=== PATIENT | female | born 1940 | race Caucasian/White ===

== ENCOUNTER 2017-03-06 06:37 | Day surgery (SDC) | payer MEDICARE, OTHER ==
--- NOTE | ~2017-03-06 | OP ---
Record Of Operation [facility] [address] [place]. [address] NAME: GLENN ARGUELLO : 44 STATUS : REG [facility] [place]#: [id number] AGE: 77 ADM/REG DATE : 03/06/17 MR#: [id number] REPORT SERV DATE: 03/06/17 DICTATED BY: RAVI JEAN JR. DATE: 03/06/17 REPORT STATUS : Draft TRANSCRIBED BY: MODCatherine DATE: 03/06/17 DATE OF PROCEDURE: 03/06/2017 PREOPERATIVE DIAGNOSES: Status post previous right lower lobectomy for stage IA squamous cell carcinoma, remote history of hip surgery with postprocedure pneumonia, mediastinal lymphadenopathy, rule out metastatic cancer, coronary artery disease, carotid artery disease, and chronic obstructive pulmonary disease. 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 NAME OF PROCEDURE: Diagnostic and therapeutic bronchoscopy, endobronchial ultrasound with multiple fine-needle aspirations, yani stations 2R, 4R, 7, and 11R. SURGEON: Ravi Jean M.D. RESIDENT SURGEON: Ray Mo MD ANESTHESIA: General. ANESTHESIOLOGIST: Raffaele Odom M.D. FINDINGS: The patient was noted to have a large necrotic lymph node in the subcarinal region. We could not identify any definite tumor cells within this area, although, it was suspicious. Abundant material was sent for cultures and cell block from this region. There was one node in the posterior right hilar region. It was marked on CT scan that was clearly distinctly different from the other lymph nodes in this region. It had suspicion of metastatic squamous cell cancer in it. The remaining lymph nodes in the hilar area were different, it did not have any obvious tumor findings. The right paratracheal node was a cluster of normal nodes in this region. There were lymphocytes present, but no evidence of tumor. The 2R lymph node was not very concerning on ultrasound. It was difficult to get biopsies in this area. We did not see any obvious tumor there. Final pathology, cell block, and cultures are pending. DETAILS OF OPERATION: After adequate general anesthesia, the patient was intubated. There was no endobronchial lesions noted. The right lower lobe bronchial stump was intact. Endobronchial ultrasound demonstrated the most pathologic lymph nodes in the subcarinal region. The second was in the posterior aspect of the right hilum. Remainder of the lymph nodes had a fairly normal architecture. Multiple fine-needle aspiration were performed from this four different regions. Cell block and cultures were also obtained. Final pathology was pending. Adequate hemostasis was obtained. The patient tolerated the procedure well and taken back to recovery room in stable condition. /AR Record Of Operation [facility] [address] [place] [address] NAME: GLENN ARGUELLO : 44 STATUS : REG [facility]#: [id number] AGE: 77 ADM/REG DATE : 03/06/17 MR#: [id number] REPORT SERV DATE: 03/06/17 DICTATED BY: RAVI JEAN JR. DATE: 03/06/17 REPORT STATUS : Draft TRANSCRIBED BY: AR DATE: 03/06/17 Ravi Jean Jr., M.D. / [id number] CC: Chelsi Perez Jr., M.D.
[~2017-03-06 06:37] MED LIST: ACET500CAP PO; ASA5GR PO; ASAB PO; BONIVA150 MG PO; CALTRA600D PO; CYANO1000T PO; FLEX PO; FORTEO SC; IMDUR30 PO; IRON; LIOR10 PO; LIPITOR10 PO; LORT7 PO; MULTI-VIT HP PO; NEUR100 PO; NORCO1 TA1 PO; NORV25 PO; PCET PO; PLAVIX PO; PRILO PO; SUPER B COMPLEX PO; ULTRAM50 PO; VITAMIN D31000 UNIT PO; ZINC220C PO; ZOVI200CAP PO; [UNRECOGNIZED DRUG - OTHER]
[2017-06-05] MEDS ORDERED: COMP10B PO (12:11)
[2017-06-05] MEDS ORDERED: DEX4 PO (12:12)
[2017-06-05] MEDS ORDERED: ZOFRANODT8 PO (12:12)
== END 2017-03-06 23:59 | disposition home or self-care (01) ==
LOC: DMU 06:37
PROVIDERS: Thoracic Surgery (Cardiothoracic Vascular Surgery)
PROC: 07B74ZX Excision of Thorax Lymphatic, Percutaneous Endoscopic Approach, Diagnostic (ICD-10-PCS; principal; 2017-03-06 08:00)
DX: C77.1 Secondary and unspecified malignant neoplasm of intrathoracic lymph nodes (principal); I25.10 Atherosclerotic heart disease of native coronary artery without angina pectoris; I65.23 Occlusion and stenosis of bilateral carotid arteries; I73.9 Peripheral vascular disease, unspecified; Z87.891 Personal history of nicotine dependence; Z82.5 Family history of asthma and other chronic lower respiratory diseases; Z82.49 Family history of ischemic heart disease and other diseases of the circulatory system; Z88.5 Allergy status to narcotic agent; Z85.118 Personal history of other malignant neoplasm of bronchus and lung; Z79.899 Other long term (current) drug therapy; Z79.02 Long term (current) use of antithrombotics/antiplatelets; Z79.82 Long term (current) use of aspirin; Z98.890 Other specified postprocedural states; Z90.89 Acquired absence of other organs; Z90.49 Acquired absence of other specified parts of digestive tract
CPT/HCPCS: 87015; 87070; 87102; 87116; 87205; 88172; 88173; 88177; 88305; 88312; 88342; 93005; A9270-GY; C1725; J2250; J2370; J2405; J3010